=== PATIENT | male | born 1970 | race Hispanic/Latino ===

== ENCOUNTER 2024-03-06 19:40 | Emergency (ER) | payer BC, OTHER ==
[~2024-03-06] VITALS: Ht 175.3 cm; Wt 79.4 kg
[2024-03-06 20:26] LABS: BASOPHILS # (AUTO) 0.04 K/uL (0.00-0.20); BASOPHILS % (AUTO) 0.5 % (0.0-5.0); EOSINOPHILS # (AUTO) 0.02 K/uL (0.00-0.70); EOSINOPHILS % (AUTO) 0.2 % (0.0-8.0); HEMATOCRIT 50.2 % (42-54); IMMATURE GRANULOCYTE ABSOLUTE 0.02 K/uL (0-1); LYMPHOCYTES # (AUTO) 1.6 K/uL (1.0-4.8); LYMPHOCYTES % (AUTO) 19.5 % (21.0-51.0); MEAN CORPUSCULAR HEMOGLOBIN 31.8 pg (27.0-33.0); MEAN CORPUSCULAR HGB CONC 35.7 g/dL (32.0-36.0); MEAN CORPUSCULAR VOLUME 89.2 fL (79-99); MONOCYTES # (AUTO) 0.7 K/uL (0.1-1.0); MONOCYTES % (AUTO) 7.9 % (3.0-13.0); NEUTROPHILS # (AUTO) 5.9 K/uL (1.8-7.7); NEUTROPHILS % (AUTO) 71.7 % (40.0-77.0); PLATELET COUNT (AUTO) 253 K/uL (130-400); RED BLOOD CELL COUNT(AUTO) 5.63 MIL/uL (4.50-6.20); RED CELL DISTRIBUTION WIDTH 14.2 % (11.0-15.5); WHITE BLOOD COUNT (AUTO) 8.2 K/uL (4.8-10.8)
[2024-03-06] MEDS: 0.9%NACL 1000ML 1,000 ML IV ONE (20:30)
[2024-03-06] MEDS: ONDANSETRON 4MG INJ IVP ONE (20:30)
[2024-03-06] MEDS: KETOROLAC 30MG VIAL (30MG/ML) IVP ONE (20:30)
[2024-03-06 20:33] LABS: APPEARANCE,URINE CLEAR (CLEAR); BILIRUBIN,URINE NEGATIVE (NEGATIVE); COLOR,URINE YELLOW (YELLOW); GLUCOSE, URINE (UA) NEGATIVE (NEGATIVE); KETONES,URINE 10 mg/dL (NEGATIVE); LEUKOCYTE ESTERASE ,URINE NEGATIVE Leu/uL (NEGATIVE); NITRATE,URINE NEGATIVE (NEGATIVE); OCCULT BLOOD,URINE NEGATIVE (NEGATIVE); PH,URINE 7.5 (5.0-8.0); PROTEIN,URINE 10 mg/dL (NEGATIVE)
[2024-03-06 20:36] LABS: ADD UA MICROSCOPIC YES
[2024-03-06 20:44] LABS: CREATININE 1.2 mg/dL (0.5-1.3); POTASSIUM 3.6 mmol/L (3.5-5.1)
[2024-03-06 20:48] LABS: MUCUS,URINE RARE LPF (None Seen); WBC,URINE 0-1 /HPF (0-1)
[2024-03-06 20:49] LABS: ALBUMIN 4.3 g/dL (3.5-5.0); BILIRUBIN,TOTAL 0.9 mg/dL (0.2-1.0); TOTAL PROTEIN, SERUM 8.2 g/dL (6.0-8.3)
[2024-03-06] MEDS ORDERED: IBUP-2077 PO (21:06)
[2024-03-06 21:19] VITALS: BP 132/77; PULSE 77; RESP 18; O2SAT 99
== END 2024-03-06 21:31 | disposition home or self-care (01) ==
LOC: EDH 19:40
DX: K80.50 Calculus of bile duct without cholangitis or cholecystitis without obstruction (principal); K76.0 Fatty (change of) liver, not elsewhere classified
CPT/HCPCS: 99284; 96374; 76705; 96375; 80053; 83690; 85025; 81001; 36415; J7030; J2405; J1885

== ENCOUNTER 2024-04-08 18:47 | Emergency (ER) | payer BC ==
[~2024-04-08] VITALS: Ht 175.3 cm; Wt 74.8 kg
[~2024-04-08 18:47] MED LIST: IBUP-2077 PO
[2024-04-08 18:55] VITALS: BP 170/89; PULSE 87; RESP 17; O2SAT 100
[2024-04-08] MEDS ORDERED: KETO10TA2 PO (20:13)
[2024-04-08] MEDS: KETOROLAC 30MG VIAL (30MG/ML) IM ONE (20:43)
== END 2024-04-08 21:00 | disposition home or self-care (01) ==
LOC: EDH 18:47
DX: S62.617A Displaced fracture of proximal phalanx of left little finger, initial encounter for closed fracture (principal); V89.2XXA Person injured in unspecified motor-vehicle accident, traffic, initial encounter; Y93.I9 Activity, other involving external motion; Y92.89 Other specified places as the place of occurrence of the external cause; Y99.8 Other external cause status
CPT/HCPCS: 99284; 73130; 29130; 96372; J1885

== ENCOUNTER 2024-04-17 21:17 | Emergency (ER) | payer BC ==
[~2024-04-17] VITALS: Ht 175.3 cm; Wt 79.4 kg
[~2024-04-17 21:17] MED LIST changes: +KETO10TA2 PO
[2024-04-17 21:19] VITALS: BP 151/94; PULSE 84; RESP 20
== END 2024-04-17 22:55 | disposition home or self-care (01) ==
LOC: EDH 21:17
DX: S62.613A Displaced fracture of proximal phalanx of left middle finger, initial encounter for closed fracture (principal); Z79.899 Other long term (current) drug therapy; Z98.890 Other specified postprocedural states; X58.XXXA Exposure to other specified factors, initial encounter; Y93.89 Activity, other specified; Y92.89 Other specified places as the place of occurrence of the external cause; Y99.8 Other external cause status
CPT/HCPCS: 29130; 73130

== ENCOUNTER 2024-07-21 17:14 | Emergency (ER) | payer BC ==
[~2024-07-21] VITALS: Ht 175.3 cm; Wt 77.1 kg
[2024-07-21 17:15] VITALS: BP 127/79; PULSE 69; RESP 16; TEMP 98.3
[2024-07-21] MEDS ORDERED: LIDOCAINE HCL/EPINEPHRINE 50 ML VIAL IJ SCH (17:30)
[2024-07-21] MEDS: LIDOCAINE 1%-EPI 1:100,000 20 ML VIAL ONE (18:49)
[2024-07-21] MEDS: LIDOCAINE 1%-EPI 1:100,000 20 ML VIAL IJ SCH (18:50)
[2024-07-21] MEDS: LIDOCAINE 2%-EPI 1:200,000 20 ML VIAL IJ ONE (18:50)
[2024-07-21] MEDS ORDERED: CEPH500B PO (19:13)
[2024-07-21] MEDS: teTANUS/diphthERIA TOXOID [ADULT] 0.5 ML VIAL IM ONE (19:58)
== END 2024-07-21 20:37 | disposition home or self-care (01) ==
LOC: EDH 17:14
DX: S81.812A Laceration without foreign body, left lower leg, initial encounter (principal); X58.XXXA Exposure to other specified factors, initial encounter; Y93.89 Activity, other specified; Y92.89 Other specified places as the place of occurrence of the external cause; Y99.8 Other external cause status
CPT/HCPCS: 99284; 90714; 90471; 12004; J3490; 12013